=== PATIENT | male | born 2000 | race Caucasian/White ===

== ENCOUNTER 2024-03-13 11:07 | Outpatient (CLI) | payer BC, SELFPAY ==
[2024-03-13 15:02] LABS: Strep A DNA Probe* NOT DETECTED (Not Detectd)
== END 2024-03-13 11:08 | disposition home or self-care (01) ==
LOC: KYNREF 11:07
PROVIDERS: PCP Nurse Practitioner Family; Visit Provider Nurse Practitioner Family
DX: J02.9 Acute pharyngitis, unspecified (principal)
CPT/HCPCS: 87651